=== PATIENT | male | born 1955 ===

== ENCOUNTER 2017-11-09 12:24 | Inpatient (IN) | payer OTHER ==
[~2017-11-09] VITALS: Ht 182.9 cm; Wt 86.2 kg
[2017-11-30] MEDS ORDERED: TAMS0.4C PO (10:46)
== END 2017-12-10 12:22 | disposition home or self-care (01) | DRG 714 ==
LOC: SURH 12-09 07:55 → O/R 12-09 07:55 → SURG 12-09 09:00 → SURH 12-09 15:43
PROVIDERS: Urology
PROC: 0TJB8ZZ Inspection of Bladder, Via Natural or Artificial Opening Endoscopic (ICD-10-PCS; 2017-12-09)
PROC: 0VT08ZZ Resection of Prostate, Via Natural or Artificial Opening Endoscopic (ICD-10-PCS; principal; 2017-12-09 10:30)
DX: N40.1 Benign prostatic hyperplasia with lower urinary tract symptoms (principal); N32.0 Bladder-neck obstruction